=== PATIENT | female | born 1995 | race Asian ===

== ENCOUNTER 2023-05-06 18:02 | Emergency (ER) | payer MEDICAID ==
[~2023-05-06] VITALS: Ht 167.6 cm; Wt 95.3 kg
[2023-05-06 18:12] VITALS: BP_SYST 157; PULSE 125; RESP 22; TEMP 98.3; O2SAT 100
[2023-05-06] MEDS ORDERED: CITA40TA22 PO (18:50)
== END 2023-05-06 18:59 | disposition home or self-care (01) ==
LOC: SED 18:02
DX: Z76.0 Encounter for issue of repeat prescription (principal); Z79.899 Other long term (current) drug therapy
CPT/HCPCS: 99281